=== PATIENT | female | born 1935 | race African-American/Black ===

== ENCOUNTER 2017-01-15 23:42 | Inpatient (IN) | payer MEDICARE, OTHER ==
[~2017-01-15] VITALS: Ht 170.2 cm; Wt 157.1 kg
--- NOTE | ~2017-01-15 | CO ---
Unit #: [id number] #: [id number] Patient: EMERSON BRUCE [id number] [address] [place], [place] [address] [id number] I MR#: [id number] NAME: EMERSON BRUCE ROOM: 570 Age: 81 Sex: F Admission Date: 01/16/2017 : 1935 Attending Physician: Bayron Saab M.D. Primary Care Physician: Rodney Austin Jr., M.D. Consultation Date: 01/17/2017 CONSULTATION REPORT BRIEF HISTORY The patient is an 81-year-old lady, who presents from a retirement with a history of hypertension. Recent nausea. Perioral angioedema. She also has history of chronic lymphedema in the bilateral lower extremities. She has been treated with [facility] with Jobst stockings and wraps. She currently denies any pain. I am asked to evaluate for the lymphedema. PAST MEDICAL HISTORY Hypertension, chronic DVT, asthma, COPD, obstructive sleep apnea, chronic lymphedema, morbid obesity. PAST SURGICAL HISTORY She had a left leg hematoma, drained. MEDICATIONS halfway medications are clindamycin, Norvasc, atenolol, albuterol, Coumadin, Tylenol. FAMILY HISTORY Negative for GI malignancy. SOCIAL HISTORY No smoking. No alcohol. REVIEW OF SYSTEMS No cardiopulmonary complaints at this time. Else, 10 systems reviewed and negative. PHYSICAL EXAMINATION GENERAL: She is awake, alert, and appears to be appropriate currently, morbid obese. VITAL SIGNS: Afebrile. HEENT: Unremarkable. NECK: Supple. No JVD. Trachea midline. LUNGS: Clear to auscultation. Bilateral breath sounds symmetric. CARDIOVASCULAR: Regular rate and rhythm. ABDOMEN: Soft, nontender, and nondistended. I palpate no masses. No hepatosplenomegaly. EXTREMITIES: Shows a chronic swelling in the bilateral lower extremities with skin discoloration. No breakdown. No cellulitis. I cannot palpate posterior pulses. DIAGNOSTIC STUDIES Unit #: [id number] #: [id number] Patient: EMERSON BRUCE LABORATORY RESULTS: Show a hemoglobin of 12.5. INR is 1.2. ASSESSMENT Chronic lymphedema. PLAN Recommend continue compression stockings with Jobst stockings if available. See no breakdown or evidence of ongoing infection. We will continue with her current outpatient regimen. Dictated by... Yara Rush/em TD: 01/17/2017 14:18 JOB #: [id number] CONSULTATION REPORT Page 1 of 1 X Ryan Weiss MD X CONSULTATION REPORT
--- NOTE | ~2017-01-15 | EKG ---
PATIENT: EMERSON BRUCE UNIT #: [id number] Ventricular Rate: 66 BPM Atrial Rate: 66 BPM P-R Interval: 198 ms QRS Duration: 106 ms Q-T Interval: 372 ms QTC Calculation(Bezet): 389 ms Calculated R [place]: 62 degrees Calculated T [place]: 55 degrees Diagnosis Line: Sinus rhythm with Premature supraventricular Diagnosis Line: complexes Diagnosis Line: Low voltage QRS Diagnosis Line: Nonspecific ST and T wave abnormality Diagnosis Line: Poor data quality Diagnosis Line: Abnormal ECG Diagnosis Line: No previous ECGs available Diagnosis Line: Confirmed by LISA CALLAHAN MD ([id number]) on 01/16/2017 Diagnosis Line: 4:57:12 PM INTERPRETING MD: SINDY BETH
--- NOTE | ~2017-01-15 | EKG ---
PATIENT: EMERSON BRUCE UNIT #: [id number] Ventricular Rate: 70 BPM Atrial Rate: 70 BPM P-R Interval: 190 ms QRS Duration: 86 ms Q-T Interval: 432 ms QTC Calculation(Bezet): 466 ms P [place]: 56 degrees Calculated R [place]: -10 degrees Calculated T [place]: 7 degrees Diagnosis Line: Sinus rhythm with Premature supraventricular Diagnosis Line: complexes with occasional Premature ventricular Diagnosis Line: complexes Diagnosis Line: Otherwise normal ECG Diagnosis Line: When compared with ECG of 16-JAN-2017 04:32, Diagnosis Line: (unconfirmed) Diagnosis Line: Premature ventricular complexes are now Present Diagnosis Line: Questionable change in QRS axis Diagnosis Line: T wave inversion now evident in Inferior leads Diagnosis Line: QT has lengthened Diagnosis Line: Confirmed by GARY OSBORN MD ([id number]) on 01/16/2017 Diagnosis Line: 4:39:31 PM INTERPRETING MD: ANURAG BETH
--- NOTE | ~2017-01-15 | HP ---
Unit #: [id number] #: [id number] Patient: EMERSON BRUCE [id number] [address] [place], [place] [address] [id number] I MR#: [id number] NAME: EMERSON BRUCE ROOM: 99092 Age: 81 Sex: F Admission Date: 01/16/2017 : 1935 Attending Physician: Janeen Hill M.D. Primary Care Physician: Rodney Austin Jr., M.D. HISTORY AND PHYSICAL CHIEF COMPLAINT Perioral angioedema. HISTORY This pleasant 81-year-old female from [facility] with history of hypertension, PE, DVT, COPD, overactive bladder is admitted for perioral angioedema. The patient was well until yesterday afternoon when she developed swelling of her top lip. Denies similar symptoms in the past. Denies shortness of breath or difficulty swallowing. She was sent to this emergency department near midnight last evening where she had significant swelling of the top of her lip. She was treated with 50 mg of IV Benadryl, 125 mg of Solu-Medrol, 20 mg of IV Pepcid. Continues to have swelling. I see that she take lisinopril 40 mg daily, and she was recently started on clindamycin. She takes the antibiotic is for possible abscess in her peroneal area, but I do not appreciate any abscess in this region. PAST MEDICAL HISTORY 1. Essential hypertension. 2. Overactive bladder and chronic urinary incontinence. 3. DVT and PE chronic anticoagulated. 4. Asthma/COPD. 5. Obstructive sleep apnea. 6. Chronic lymphedema. 7. Morbid obesity. 8. Total abdominal hysterectomy. 9. Bilateral carpal tunnel release. 10. Cataract extraction. 11. Tonsillectomy. 12. Left leg hematoma requiring surgery. ALLERGIES Allergies to iodine. CUSTODIAL MEDICATIONS Clindamycin 300 mg 2 tablets t.i.d., which started yesterday; potassium 10 mEq daily; Norvasc 50 mg daily; lisinopril 40 mg daily; VESIcare 10 mg daily; Myrbetriq ER 50 mg daily; Lasix 40 mg b.i.d.; atenolol 50 mg daily; Colace 100 mg b.i.d.; Florastor 250 mg b.i.d.; albuterol nebulizer b.i.d.; Coumadin 2.5 mg and 4 mg equally 6.5 mg daily; Tylenol; EpiPen as needed. Multiple skin care lotions. FAMILY HISTORY Unit #: [id number] #: [id number] Patient: EMERSON BRUCE. SOCIAL HISTORY The patient lives at [facility]. She stopped smoking in 1983 and does not drink alcohol. REVIEW OF SYSTEMS Notable for urinary incontinence, hypertension, DVT, PE, asthma, COPD, hypertension, obstructive sleep apnea, chronic lymphedema, anticoagulated, above mentioned surgeries. Swelling of the lip. All other systems were reviewed and otherwise negative. PHYSICAL EXAMINATION GENERAL: Pleasant, morbidly obese, 81-year-old female currently in no acute distress. VITAL SIGNS: Temperature 98.7, pulse 60, respirations 20, blood pressure 153/73, O2 saturation is 99% on room air. HEENT: Eyes - PERRLA. Extraocular muscles are intact. Pharynx is benign. There is swelling of the top lip. NECK: Supple without adenopathy or thyromegaly. CHEST: Clear. CARDIAC: Normal S1 and S2, occasionally irregular without definite murmur. ABDOMEN: Bowel sounds are present. No hepatosplenomegaly, tenderness, or masses. Perineal area I do not appreciate an abscess. EXTREMITIES: Chronic lymphedema, wraps are on legs bilaterally. NEUROLOGIC: Patient is awake, alert, and oriented. Cranial nerves are intact. She has equal strength throughout. DIAGNOSTIC STUDIES LABS: Hematocrit is 36.8, normal white count and platelet count. Coags are pending. SMA 7 is normal. Urinalysis 1+ blood, without significant white or red cells. IMAGING STUDIES: Plain x-rays of the soft tissues of the neck DJD. ASSESSMENT 1. Perioral angioedema, which may be related to recent addition of clindamycin. However, patient is also on an MARIANNE inhibitor. 2. History of DVTs and PEs on Coumadin. There is some mention on her MAR that she could have atrial fibrillation, I am unsure. She appears to be in a sinus rhythm on the monitor and I will ask for an EKG. 3. Essential hypertension. 4. Overactive bladder and chronic urinary incontinence. 5. Asthma/COPD. 6. Chronic lymphedema. 7. Morbid obesity. PLANS 1. Discontinue clindamycin. 2. Discontinue lisinopril. 3. Again I do not appreciate an abscess in the perineal area. 4. Wound nurse to see in the morning. 5. Daily PT and INR. 6. Steroids, H1 and H2 blockers. 7. Increase Norvasc for now. 8. Obtain EKG. Unit #: [id number] #: [id number] Patient: EMERSON BRUCE 9. Patient is a DNR per her [facility] papers. Dictated by Janeen Hill M.D. AML/ts TD: 01/16/2017 05:24 JOB #: [id number] HISTORY AND PHYSICAL Page 1 of 1 X Janeen Hill MD X HISTORY AND PHYSICAL
--- NOTE | ~2017-01-15 | DS ---
Unit #: [id number] #: [id number] Patient: EMERSON BRUCE [id number] [facility]. [place], [place] [address] [id number] I MR#: [id number] NAME: EMERSON BRUCE ROOM: 570 Age: 81 Sex: F Admission Date: 01/16/2017 : 1935 Discharge Date: 01/17/2017 Attending Physician: Bayron Saab M.D. Primary Care Physician: Rodney Austin Jr., M.D. DISCHARGE SUMMARY REASON FOR ADMISSION Perioral angioedema. HISTORY OF PRESENT ILLNESS/HOSPITAL COURSE The patient is an 81-year-old female at [facility] was presented secondary to perioral angioedema. Please see H and P for complete details. She was appropriately treated, placed on telemetry floor after being evaluated in the emergency room. She received IV Solu-Medrol, Benadryl, her lisinopril, as well as clindamycin. Both were discontinued. She has shown improvement. There were no airway compromise issues. Her lip swelling did decrease and there were no other acute events, which were noted while patient was here in the hospital. She apparently was given a prescription for an antibiotic to which was diagnosed with an abscess in the groin region. However, exam and review there was no visible abscess, which was noted. There was a small hemorrhoid, which was noted in the rectal area but there was no visible skin abscess, groin abscess that was currently present on physical exam during this hospital stay. At this point in time the patient is clinically stable for discharge/transfer back to correction for ongoing care. She states that she has a prior history of pulmonary embolism and/or DVT in the 1970s and she has been maintained on Coumadin since that time. Today at the time of discharge her INR was currently 1.5, although I do not have any verified records from the past and certainly was secondary to her advanced age. Consideration should be given to discontinuing her Coumadin. I will perform an ultrasound of her lower extremities to rule out occult DVT. If it is negative, I will defer the decision of discontinuing Coumadin to Dr. Austin in the long-term. In regards to her lower extremity chronic lymphedema, a recommendation has been made for patient to follow up as an outpatient at the lymphedema clinic either at [facility] or at [facility]. The patient, as well as family members are well aware patient will be discharged back to correction in stable condition. FINAL DISCHARGE DIAGNOSIS 1. Angioedema, now resolved, 2. Questionable adverse drug reaction to clindamycin. 3. Hypertension. 4. Overactive bladder. 5. Severe morbid obesity. 6. Prior history of DVT and PE with details/records unavailable. Unit #: [id number] #: [id number] Patient: EMERSON BRUCE 7. Asthma. 8. Obstructive sleep apnea. 9. Chronic lymphoedema. 10. Urinary incontinence issues. DISCHARGE MEDICATIONS 1. Albuterol sulfate 1 inhalation b.i.d. 2. Tylenol 500 mg p.o. q.6 p.r.n. 3. Coumadin 6.5 mg p.o. q.h.s. 4. Benadryl 25 mg p.o. q.6 p.r.n. 5. Norvasc 5 mg p.o. daily. 6. Tenormin 50 mg p.o. daily, note new dosage regimen. 7. Colace 100 mg p.o. b.i.d. 8. Lasix 40 mg p.o. b.i.d. 9. VESIcare 10 mg p.o. daily. 10. Florastor 250 mg p.o. b.i.d. 11. Klor-Con 10 mEq p.o. daily. 12. Myrbetriq 50 mg p.o. daily. DISCHARGE CONDITION Stable. DISCHARGE DISPOSITION correction for ongoing care. Dictated by... Yara Smith/madyson TD: 01/17/2017 11:47 JOB #: [id number] DISCHARGE SUMMARY Page 1 of 1 X Bayron Saab MD X DISCHARGE SUMMARY
--- NOTE | ~2017-01-15 | BMI ---
[facility] Nutrition Therapy DATE: 01/16/17 Patient: EMERSON BRUCE Physician: SHUBHAM Address: [address] Room/Bed: [address] [place] [address], Zip: [place] [address] Admit Date: 01/16/17 Date of : [birth year] Height: 5 7 Weight: 352 159.8 HIGH BMI NOTE: DX: 81 Y.O. FEMALE ADMITTED FOR PERIORAL ANGIOEDEMA ANTHROPOMETRICS: 5'7", WT: 352# (160 KG), BMI: 55.1 DIET: HEALTHY HEART RECOMMENDATIONS: 1. RECOMMEND TO CONTINUE CURRENT DIET ORDER ABOVE TO PROMOTE GRADUAL WEIGHT LOSS TOWARDS HEALTHY BMI (19.0-25.0) OR +/-10%IBW RD WILL F/U PER PROTOCOL Respectfully, LILLIAN DE LEÓN MS, RD, LD [employer] [facility] cc: client file
--- NOTE | ~2017-01-15 | CR195 ---
[facility] A Service of [facility] RADIOLOGY TEXT RESULTS PATIENT: EMERSON BRUCE LOCATION: [facility] 570-01 : [birth year] UNIT #: [id number] AGE: [address]: Bayron Saab MD SEX: F ORDER DR: [id number] [facility] [address] [place], [place] [address] [id number] I MR#: [id number] Acc #: [id number] NAME: EMERSON BRUCE : 1935 SEX: F STUDY DATE/TIME: 01/16/2017 00:46 UNIT: [facility] ROOM: [facility] STUDY DESCRIPTION: CR Neck Soft Tissue Attending Physician: Bayron Saab M.D. Ordering Physician: Jaclyn Truong M.D. Primary Care Physician: Rodney Austin Jr., M.D. MEDICAL IMAGING REPORT This report is preliminary unless electronic signature is present EXAM Neck soft tissue, 01/16 at 0046 hours. INDICATIONS Lisinopril reaction today. Lip and neck soft tissue swelling. FINDINGS AP and lateral soft tissue views of the neck were obtained. Note is made of diffuse cervical degenerative disease. The airway is widely patent. The epiglottis is normal. Prevertebral soft tissues are normal. No radiopaque foreign bodies. IMPRESSION Cervical degenerative disease. Soft tissues are within normal limits. Airway appears widely patent. Dictated by... Jitendra Nicholson Jr., M.D. THIS IS AN ELECTRONICALLY VERIFIED REPORT Jitendra Nicholson Jr., M.D. at 01/19/2017 5:50 AM CLAIR/frieda TD: 01/16/2017 11:13 JOB #: [id number] MEDICAL IMAGING REPORT Page 1 of 1 COPY
--- NOTE | ~2017-01-15 | US84 ---
[id number] [facility]. [facility] [address] [place], [place] [address] [id number] MR#: [id number] Acc #: [id number] NAME: EMERSON BRUCE : 1935 SEX: F STUDY DATE/TIME: 01/17/2017 11:24 UNIT: [facility] ROOM: 570 STUDY DESCRIPTION: US LE Veins Complete Bin Stdy Attending Physician: Bayron Saab M.D. Ordering Physician: Bayron Saab M.D. Primary Care Physician: Rodney Austin Jr., M.D. MEDICAL IMAGING REPORT This report is preliminary unless electronic signature is present EXAM Bilateral lower extremity venous Doppler. DATE OF STUDY 01/17/2017 CLINICAL HISTORY Leg swelling for 20 years. History of chronic DVT. PROCEDURE Rloand-scale imaging, color-Doppler flow imaging, and Doppler waveform analysis. FINDINGS Exam is somewhat limited but inability to visualize the below-knee calf veins, as well as inability to tolerate compression. Allowing for this, there is normal appearing [id number] color flow and respiratory phasicity in the lower extremity deep venous systems, as well as in the saphenous veins. IMPRESSION Technically limited due to body habitus and patient inability to tolerate compression but no evidence of DVT. The below-knee veins could not be visualized. Dictated by... Migue Pepper M.D. THIS IS AN ELECTRONICALLY VERIFIED REPORT Migue Pepper M.D. at 01/22/2017 5:03 PM TEV/oseiw TD: 01/17/2017 15:09 JOB #: [id number] MEDICAL IMAGING REPORT Page 1 of 1 COPY
[2017-01-16 00:54] LABS: BASOPHIL% 0.7 % (0-2.5); EOSINOPHIL# 0.1 X10e3 (0-0.7); EOSINOPHIL% 2.3 % (0.0-7.0); HEMATOCRIT 36.8 % (35.0-45.0); HEMOGLOBIN 11.8 gm/dL (12.0-16.0); LYMPHOCYTE# 1.8 X10e3 (1.0-3.5); LYMPHOCYTE% 45.1 % (17.0-45.0); MEAN CORPUSCULAR HEMOGLOBIN 28.6 PG (28-34); MEAN CORPUSCULAR HGB CONC 32.1 g/dL (30-36); MONOCYTE# 0.6 X10e3 (0-1.0); MONOCYTE% 15.9 % (3.0-12.0); NEUTROPHIL# 1.4 X10e3 (1.5-7.1); PLATELET COUNT 193 X10e3 (140-420); RED BLOOD COUNT 4.14 X10e (3.90-5.30); RED CELL DISTRIBUTION WIDTH 14.4 % (11.0-15.5)
[2017-01-16 00:55] LABS: DIFF IND NO
[2017-01-16 01:23] LABS: BUN/CREATININE RATIO 27.5; CREATININE SERUM 0.8 mg/dL (0.6-1.4); GLOM FILT RATE Estimated 79.1 mL/min (>60); POTASSIUM 4.9 mmol/L (3.5-5.1)
[2017-01-16 02:03] LABS: URINE SOURCE CLEAN CATCH
[2017-01-16 02:08] LABS: URINE APPEARANCE CLEAR; URINE BILIRUBIN NEG (NEG); URINE BLOOD 1+ (NEG); URINE COLOR YELLOW; URINE GLUCOSE NEG (NEG); URINE KETONE NEG (NEG); URINE LEUKOCYTE ESTERASE NEG (NEG); URINE NITRATE NEG (NEG); URINE PH 7.5 (5-8); URINE PROTEIN NEG (NEG); URINE SPECIFIC GRAVITY 1.004 (1.003-1.035); URINE UROBILINOGEN 0.2 MG/DL (NEG)
[2017-01-16 02:11] LABS: URBCS1 AUWI 0-2 /[HPF] (0-2); URINE BACTERIA AUWI NEG (NEGATIVE); URINE SQUAMOUS EPITHELIAL CELL NONE SEEN /[HPF]; UWBCS1 AUWI 0-2 (0-5)
[2017-01-16 02:26] LABS: CULTURE INDICATED? NO
[2017-01-16 04:05] LABS: INR 1.2; PROTHROMBIN TIME (PATIENT) 13.1 SECONDS (10.0-11.7)
[2017-01-16] MEDS ORDERED: MYRBETRIQ50 MG PO (04:10)
[2017-01-16] MEDS ORDERED: LASIX PO (04:10)
[2017-01-16] MEDS ORDERED: ATENOLOL50 MG PO (04:11)
[2017-01-16] MEDS ORDERED: FLORASTORKIDS250 MG PO (04:11)
[2017-01-16] MEDS ORDERED: DOCUSATE SODIU100 MG PO (04:11)
[2017-01-16] MEDS ORDERED: ALBUTEROL2.5 MG/3 M INH (04:12)
[2017-01-16] MEDS ORDERED: COUMADIN PO (04:12)
[2017-01-16] MEDS ORDERED: MAPAP500 MG PO (04:14)
[2017-01-16] MEDS ORDERED: DIABETIC T100 MG/52 PO (04:14)
[2017-01-16] MEDS ORDERED: EPIPEN JR0.15 MG/01 INJ (04:16)
[2017-01-16] MEDS ORDERED: CLEOCIN HCL300 M1 PO (04:18)
[2017-01-16] MEDS ORDERED: NORVASC PO (04:19)
[2017-01-16] MEDS ORDERED: PRINIVIL40 MG PO (04:19)
[2017-01-16] MEDS ORDERED: KLOR-CON SPRIN10 MEQ PO (04:19)
[2017-01-16] MEDS ORDERED: VESICARE PO (04:20)
[2017-01-16 07:21] LABS: INR 1.2; PROTHROMBIN TIME (PATIENT) 13.3 SECONDS (10.0-11.7)
[2017-01-17 06:15] LABS: HEMATOCRIT 37.9 % (35.0-45.0); HEMOGLOBIN 12.5 gm/dL (12.0-16.0); MEAN CELL VOLUME 88.2 FL (83-96); MEAN CORPUSCULAR HGB CONC 32.8 g/dL (30-36); MEAN PLATELET VOLUME 8.3 FL (6.5-11.5); RED BLOOD COUNT 4.3 X10e (3.90-5.30); RED CELL DISTRIBUTION WIDTH 14.1 % (11.0-15.5)
[2017-01-17 06:54] LABS: INR 1.5
[2017-01-17 07:16] LABS: CALCIUM SERUM 8.4 mg/dL (8.4-10.2); CREATININE SERUM 0.8 mg/dL (0.6-1.4); GLOM FILT RATE Estimated 79.1 mL/min (>60); POTASSIUM 3.8 mmol/L (3.5-5.1)
== END 2017-01-18 07:55 | DRG 916 ==
LOC: CED 23:42 → CEDOF 01-16 03:25 → CED 01-16 03:38 → C5C 01-16 05:25 → CEDOF 01-16 05:25 → C5C 01-16 07:45
PROVIDERS: Emergency Medicine; Family Medicine; Internal Medicine
DX: T78.3XXA Angioneurotic edema, initial encounter (principal); J44.9 Chronic obstructive pulmonary disease, unspecified; Z68.43 Body mass index [BMI] 50.0-59.9, adult; I10 Essential (primary) hypertension; N32.81 Overactive bladder; Z86.711 Personal history of pulmonary embolism; Z86.718 Personal history of other venous thrombosis and embolism; R32 Unspecified urinary incontinence; Z79.01 Long term (current) use of anticoagulants; J45.909 Unspecified asthma, uncomplicated; G47.33 Obstructive sleep apnea (adult) (pediatric); E66.01 Morbid (severe) obesity due to excess calories; Z90.710 Acquired absence of both cervix and uterus; Z98.49 Cataract extraction status, unspecified eye; I89.0 Lymphedema, not elsewhere classified
CPT/HCPCS: 36415; 70360; 80048; 81003; 82947; 85025; 85027; 85610; 93005; 93970; 94640; 94760; 96374; 96375; 99285; J1200; J1815; J2930